=== PATIENT | male | born 1960 | race Caucasian/White ===

== ENCOUNTER → 2017-06-10 | Outpatient (CLI) | payer BC ==
[~2017-06-10] MED LIST: FEXO1TAB49 PO; TRAZ50TA35 PO
--- NOTE | 2017-06-10 15:00 | DIAGNOSTIC IMAGING REPORT ---
LEFT SHOULDER 3 VIEWS HISTORY: LEFT SHOULDER PAIN COMPARISON: None. FINDINGS: There is no fracture or dislocation. Soft tissues are unremarkable. The left clavicle is intact. Mild AC joint arthrosis. IMPRESSION: 1. No fracture or dislocation within the left shoulder. 2. Mild AC joint arthrosis. Electronically signed by: Rashel Ray M.D. 06/10/2017 2:59 PM Dictated Date/Time: 06/10/2017 2:56 PM
== END | disposition home or self-care (01) ==
LOC: C.RDSM 10:55
PROVIDERS: ATTEND Internal Medicine
DX: M25.512 Pain in left shoulder (principal)